=== PATIENT | female | born 1950 | race African-American/Black ===

== ENCOUNTER 2018-02-19 13:34 | Inpatient (IN) ==
[2018-02-19] MEDS ORDERED: diphenhydrAMINE CAP 25 MG CAPSULE PO PRN (14:17)
[2018-02-19] MEDS ORDERED: ZALEPLON 5 MG CAPSULE PO PRN (14:17)
[2018-02-19] MEDS ORDERED: LACTULOSE 20 GM/30 ML UDCUP PO PRN (14:17)
[2018-02-19] MEDS ORDERED: MAGNESIUM SULF RIDER 2 GM in PREMIX 1 EACH IV PRN (14:17)
[2018-02-19] MEDS ORDERED: guaiFENesin/DM ER 600-30 MG TABLET PO PRN (14:17)
[2018-02-19] MEDS ORDERED: ONDANSETRON 4 MG/2 ML VIAL IV PRN (14:17)
[2018-02-19] MEDS ORDERED: POTASSIUM CHLORIDE 20 MEQ TABLET PO PRN (14:17)
[2018-02-19] MEDS ORDERED: MAGNESIUM SULF RIDER 4 GM in PREMIX 1 EACH IV PRN (14:17)
[2018-02-19] MEDS ORDERED: DOCUSATE SODIUM 100 MG CAPSULE PO PRN (14:17)
[2018-02-19] MEDS ORDERED: ACETAMINOPHEN 325 MG TABLET PO PRN (14:17)
[2018-02-19] MEDS ORDERED: DILTIAZEM 100 MG VIAL.ADD IV ONE (15:21)
[2018-02-19] MEDS ORDERED: METOPROLOL TARTRATE 5 MG/5 ML VIAL IV ONE (16:06)
[2018-02-19] MEDS ORDERED: FLUTICASONE 50 MCG NASAL SPRAY 16 GM BOTTLE BOTH NARES PRN (16:08)
[2018-02-19] MEDS ORDERED: METOPROLOL TARTRATE 5 MG/5 ML VIAL IV PRN (16:09)
[2018-02-19 16:16] LABS: Troponin I Only 0.719 NG/ML (0.00-0.045)
[2018-02-19 17:59] LABS: Troponin I Only 0.887 NG/ML (0.00-0.045)
[2018-02-19] MEDS ORDERED: ENOXAPARIN 100 MG/ML SYRINGE SUBCUT ONE (18:40)
[2018-02-19] MEDS ORDERED: predniSONE 20 MG TABLET PO ONE (18:41)
[2018-02-19] MEDS ORDERED: APIXABAN 5 MG TABLET PO SCH (21:00)
[2018-02-19] MEDS ORDERED: ENOXAPARIN 40 MG/0.4 ML SYRINGE SUBCUT SCH (21:00)
[2018-02-19 21:49] LABS: Troponin I Only 0.903 NG/ML (0.00-0.045)
[2018-02-19] MEDS: FAMOTIDINE 20 MG TABLET PO SCH (21:54)
[2018-02-19] MEDS: METOPROLOL TARTRATE 25 MG TABLET PO SCH (21:55)
[2018-02-19] MEDS: diphenhydrAMINE CAP 25 MG CAPSULE PO SCH (21:55)
[2018-02-19] MEDS: ASCORBIC ACID 500 MG TABLET PO SCH (21:55)
[2018-02-20 05:42] LABS: Basophils % 0.5 % (0.0-0.8); Hemoglobin 12.2 GM/DL (12.0-16.0); Immature Granulocytes % 0.3 %; Immature Granulocytes Absolute 0.02 #; Lymphocytes # 1.3 10*3/uL (1.4-4.0); Mean Corpuscular HGB Conc 34.9 GM/DL (32-36); Mean Corpuscular Hemoglobin 29 PG (27-34); Mean Corpuscular Volume 83.1 FL (87-102); Mean Platelet Volume 11.3 FL (9.6-12.0); Monocytes # 0.2 10*3/uL (0.11-0.8); Monocytes % 2.6 % (1.7-12.7); NRBC # 0.03 10*3/uL; Neutrophils # 4.3 10*3/uL (1.4-7.4); Neutrophils % 74.6 % (38.7-73.9); Platelet Count 261 T/CUMM (130-400); Red Blood Count 4.21 MC/CUMM (3.8-5.5); Red Cell Distribution Width 13.6 % (9.3-17.3); White Blood Count 5.7 T/CUMM (4-12)
[2018-02-20 06:25] LABS: Calcium 8.8 MG/DL (8.5-10.1); Osmolality,Calculated 287.4 MOS/KG (273-304); Potassium 3.7 MMOL/L (3.5-5.1); Risk Ratio 5.03; Thyroid Stimulating Hormone 0.482 uIU/ml (0.358-3.74); VLDL CHOLESTEROL 24.4 MG/DL
[2018-02-20] MEDS ORDERED: diphenhydrAMINE CAP 25 MG CAPSULE PO ONE (10:29)
[2018-02-20] MEDS ORDERED: DIAZEPAM 5 MG TABLET PO ONE (10:29)
[2018-02-20] MEDS ORDERED: SODIUM CHLORIDE 0.9% 1,000 ML IV SCH (10:30)
[2018-02-20] MEDS ORDERED: methylPREDNISolone SOD SUC 125 MG/2 ML VIAL IV ONE (10:32)
[2018-02-20] MEDS ORDERED: diphenhydrAMINE CAP 50 MG CAPSULE PO ONE (10:37)
[2018-02-20] MEDS: FAMOTIDINE 20 MG TABLET PO SCH ×2 (10:49→23:50)
[2018-02-20] MEDS: PANTOPRAZOLE 40 MG TABLET PO SCH (11:04)
[2018-02-20] MEDS: ASPIRIN CHEW 81 MG TABLET PO SCH (11:04)
[2018-02-20] MEDS: METOPROLOL TARTRATE 25 MG TABLET PO SCH ×2 (11:04→21:00)
[2018-02-20] MEDS: ASCORBIC ACID 500 MG TABLET PO SCH ×2 (11:04→20:58)
[2018-02-20] MEDS: DILTIAZEM CD 120 MG CAPSULE PO SCH ×2 (11:04→20:58)
[2018-02-20] MEDS: FAMOTIDINE 20 MG/2 ML VIAL IV SCH ×2 (11:13→23:51)
[2018-02-20] MEDS ORDERED: MIDAZOLAM 2 MG/2 ML VIAL ONE ×2 (14:26→14:49)
[2018-02-20] MEDS ORDERED: fentaNYL 100 MCG/2 ML VIAL ONE (14:26)
[2018-02-20] MEDS ORDERED: NITROGLYCERIN DRIP 50 MG/250 ML BOTTLE IV ONE (14:33)
[2018-02-20] MEDS ORDERED: VERAPAMIL 5 MG/2 ML VIAL ONE (14:33)
[2018-02-20] MEDS ORDERED: ENOXAPARIN 40 MG/0.4 ML SYRINGE SUBCUT SCH (16:00)
[2018-02-20] MEDS: diphenhydrAMINE CAP 25 MG CAPSULE PO SCH (20:59)
[2018-02-20] MEDS: methylPREDNISolone SOD SUC 40 MG/1 ML VIAL IV SCH (21:00)
[2018-02-20] MEDS ORDERED: EZETIMIBE 10 MG TABLET PO SCH (21:00)
[2018-02-21 06:09] LABS: Basophils % 0.1 % (0.0-0.8); Hematocrit 33.9 VOL% (35.7-47.0); Hemoglobin 11.4 GM/DL (12.0-16.0); Immature Granulocytes % 0.7 %; Immature Granulocytes Absolute 0.05 #; Lymphocytes # 1.2 10*3/uL (1.4-4.0); Lymphocytes % 15.9 % (21.3-54.2); Mean Corpuscular HGB Conc 33.6 GM/DL (32-36); Mean Corpuscular Hemoglobin 29 PG (27-34); Mean Corpuscular Volume 86.9 FL (87-102); Mean Platelet Volume 10.5 FL (9.6-12.0); Monocytes # 0.1 10*3/uL (0.11-0.8); Monocytes % 1.8 % (1.7-12.7); NRBC # 0.02 10*3/uL; Neutrophils % 81.5 % (38.7-73.9); Platelet Count 283 T/CUMM (130-400); Red Cell Distribution Width 13.9 % (9.3-17.3); White Blood Count 7.4 T/CUMM (4-12)
[2018-02-21 06:31] LABS: Calcium 8.6 MG/DL (8.5-10.1); Osmolality,Calculated 290.1 MOS/KG (273-304); Potassium 4.5 MMOL/L (3.5-5.1)
[2018-02-21 07:40] VITALS: BP 117/56
[2018-02-21] MEDS: DILTIAZEM CD 120 MG CAPSULE PO SCH (08:57)
[2018-02-21] MEDS: ASCORBIC ACID 500 MG TABLET PO SCH (08:58)
[2018-02-21] MEDS: FAMOTIDINE 20 MG TABLET PO SCH (08:58)
[2018-02-21] MEDS: PANTOPRAZOLE 40 MG TABLET PO SCH (08:58)
[2018-02-21] MEDS: METOPROLOL TARTRATE 25 MG TABLET PO SCH (08:58)
[2018-02-21] MEDS: ASPIRIN CHEW 81 MG TABLET PO SCH (08:58)
[2018-02-21] MEDS: methylPREDNISolone SOD SUC 40 MG/1 ML VIAL IV SCH (08:59)
[2018-02-21] MEDS: FAMOTIDINE 20 MG/2 ML VIAL IV SCH (11:30)
== END 2018-02-21 15:15 | disposition home or self-care (01) | DRG 287 ==
LOC: N.TELES 14:39
PROVIDERS: ADMIT Internal Medicine Cardiovascular Disease; ATTEND Internal Medicine Cardiovascular Disease